=== PATIENT | male | born 1995 | race African-American/Black ===

== ENCOUNTER 2022-11-25 03:21 | Emergency (ER) | payer MEDICAID, OTHER ==
--- NOTE | 2022-11-25 03:40 | ED Neurological Problem ---
General Chief Complaint: General Problems/Pain Stated Complaint: THAI LEG NUMBNESS Source: patient, EMS Exam Limitations: no limitations History of Present Illness Date Seen by Provider: Nov 25, 2022 Time Seen by Provider: 03:23 Initial Comments 27-year-old male with past medical history of diabetes, hypertension, anxiety, and bipolar disorder coming in via EMS due to lower extremity numbness. He states for the past 3 and half weeks this is happening intermittently. Today he was sitting on the toilet, he felt both of his legs COVID, and it took a while before he was able to really stand up. Total numbness lasted around 20 minutes before it completely got better after getting off of the toilet seat for a few m inutes. Denies any back pain, bowel or bladder issues, trauma or falls, headache, vision changes, or any other concerns. EMS reports normal vitals and a glucose of 100. He states he does have some neuropathy in his feet and some vision changes from his diabetes already chronically. He states he is asymptomatic and back to his baseline at this time. Allergies and Home Medications Allergies Coded Allergies: No Known Drug Allergies (Unverified , 11/25/22) Patient Home Medication List Home Medication List Reviewed: Yes Review of Systems Review of Systems Constitutional: No fever Eyes: No Symptoms Reported Ears, Nose, Mouth, Throat: no symptoms reported Respiratory: no symptoms reported Cardiovascular: no symptoms reported Gastrointestinal: no symptoms reported Genitourinary: no symptoms reported Musculoskeletal: no symptoms reported Skin: no symptoms reported Psychiatric/Neurological: See HPI Endocrine: No Symptoms Reported Past Dhzzuzn-Irvgpg-Llautx Hx Patient Social History Tobacco Use?: Yes Smoking Status: Current Someday Smoker Substance use?: No Alcohol Frequency: Rarely Immunizations Up To Date COVID19 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 oz. kg; BMI Method: General Appearance: WD/WN, no apparent distress HEENT: PERRL/EOMI, normal ENT inspection, pharynx normal Neck: non-tender, full range of motion, supple, normal inspection Respiratory: chest non-tender, lungs clear, normal breath sounds, no respiratory distress, no accessory muscle use Cardiovascular: regular rate, rhythm, no edema, no murmur Gastrointestinal: normal bowel sounds, non tender, soft; No distended, No guarding, No rebound Back: normal inspection, no CVA tenderness, no vertebral tenderness Extremities: normal range of motion, non-tender, normal inspection, no pedal edema, no calf tenderness, normal capillary refill 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, no motor/sensory deficits, alert, normal mood/affect, oriented x 3, other (Decreased two-point discrimination over the distal aspect of his toes) Crainal Nerves: normal hearing, normal speech, PERRL Coordination/Gait: normal finger to nose, normal gait Motor/Sensory: no motor deficit, no sensory deficit, no pronator drift Skin: normal color, warm/dry Stroke Onset of Symptoms Date of Onset of Symptoms: Nov 25, 2022 Time of Symptom Onset: 01:00 Onset of Symptoms: Yes NIH Stroke Scale Assessment Select: Initial Level of Consciousness: 0=Alert (0), Level of Consciousness- Questions: 0=Answers both month/age (0), LOC Commands: 0=Performs both tasks (0), Gaze: Normal (0), Visual Maddox: 1=Partial hemianopia (1), Facial Movement (Facial Paresis): 0=Normal symmetrical mnt (0), Motor Function-Arms Right: 0=No drift (0), Motor Function-Arms Left: 0=No drift (0), Motor Function-Legs Right: 0=No drift (0), Motor Function-Legs Left: 0=No drift (0), Limb Ataxia: 0=Absent (0), Sensory: 0=Normal:no loss (0), Best Language: 0=No aphasia (0), Dysarthria: 0=Normal (0), Extinction & Inattention: 0=No abnormality (0), Total: 1 Stroke Thrombolytic Exclusion TPA Contraindication: Yes IV - TPa Received IV - TPa Procedure Performed?: No Progress/Results/Core Measures Results/Orders Lab Results Laboratory Tests Test 11/25/22 03:40 Range/Units White Blood Count 10.9 4.3-11.0 10^3/uL Red Blood Count 4.58 4.30-5.52 10^6/uL Hemoglobin 14.0 13.3-17.7 g/dL Hematocrit 42 40-54 % Mean Corpuscular Volume 91 80-99 fL Mean Corpuscular Hemoglobin 31 25-34 pg Mean Corpuscular Hemoglobin Concent 34 32-36 g/dL Red Cell Distribution Width 13.8 10.0-14.5 % Platelet Count 271 130-400 10^3/uL Mean Platelet Volume 9.7 9.0-12.2 fL Immature Granulocyte % (Auto) 0 % Neutrophils (%) (Auto) 47 42-75 % Lymphocytes (%) (Auto) 43 12-44 % Monocytes (%) (Auto) 7 0-12 % Eosinophils (%) (Auto) 3 0-10 % Basophils (%) (Auto) 1 0-10 % Neutrophils # (Auto) 5.1 1.8-7.8 10^3/uL Lymphocytes # (Auto) 4.6 H 1.0-4.0 10^3/uL Monocytes # (Auto) 0.8 0.0-1.0 10^3/uL Eosinophils # (Auto) 0.3 0.0-0.3 10^3/uL Basophils # (Auto) 0.1 0.0-0.1 10^3/uL Immature Granulocyte # (Auto) 0.0 0.0-0.1 10^3/uL Sodium Level 139 135-145 MMOL/L Potassium Level 3.6 3.6-5.0 MMOL/L Chloride Level 108 H 98-107 MMOL/L Carbon Dioxide Level 20 L 21-32 MMOL/L Anion Gap 11 5-14 MMOL/L Glucose Level 98 70-105 MG/DL Calcium Level 9.1 8.5-10.1 MG/DL My Orders Orders - LEVI NEGRON MD Basic Metabolic Panel (11/25/22 03:36) Cbc With Automated Diff (11/25/22 03:36) Magnesium (11/25/22 03:36) Vital Signs/I&O 11/25/22 11/25/22 03:21 03:21 Temp 37.1 Pulse 79 Resp 16 B/P (MAP) 128/77 (94) Pulse Ox 97 O2 Delivery Room Air Room Air Progress Progress Note : Progress Note 27-year-old male presenting for bilateral leg numbness after sitting on the toilet seat tonight. ABCs were intact and vitals were stable on presentation. Neuro exam completely normal including an NIH stroke scale of 0 and the patient is at his baseline. On more detailed exam, he does have decreased two-point discrimination in his toes and he does have known vision changes from diabetes. I suspect some portion of this is due to neuropathy. However given the anatomical compression of nerves while sitting on the toilet seat, that also is likely playing a part in it tonight. Given that it improved after getting off the toilet seat and he no longer feels that way, no trauma to his back, no headache or any other concerns, I do not think CT of his head or lumbar spine would be helpful at this time. I also do not believe an MRI would be necessary at this time given he is completely normal. I am unclear of the exact etiology, but I do think it would be prudent for him to follow-up with a neurologist as an outpatient. Did some basic labs here and his electrolytes are unremarkable. I believe he is otherwise stable for discharge with outpatient follow-up. He was sent home with strict return precautions Departure Impression Primary Impression: Bilateral leg numbness Disposition: 01 HOME, SELF-CARE Condition: Improved Departure-Patient Inst. Decision time for Depature: 04:20 Patient Instructions: Diabetic Neuropathy (DC), Paresthesia (DC) Add. Discharge Instructions: We do think that some extent of the numbness is you have some nerve damage from diabetes in your feet. There could also be some compression of nerves when you sit on the toilet which can cause symptoms like this. I do think it would be helpful to follow-up with a neurologist which is a mechanical specialist so they can examine you and see if they recommend any special imaging. Work/School Note: Work Release Form Date Seen in the Emergency Department: Nov 25, 2022 Return to Work: Nov 26, 2022 Restrictions: No Restrictions LEVI NEGRON MD Nov 25, 2022 03:40
[2022-11-25 03:49] LABS: BASOPHILS # (AUTO) 0.1 10^3/uL (0.0-0.1); BASOPHILS % (AUTO) 1 % (0-10); EOSINOPHILS # (AUTO) 0.3 10^3/uL (0.0-0.3); EOSINOPHILS % (AUTO) 3 % (0-10); HEMATOCRIT 42 % (40-54); LYMPHOCYTES # (AUTO) 4.6 10^3/uL (1.0-4.0); LYMPHOCYTES % (AUTO) 43 % (12-44); MEAN CORPUSCULAR HEMOGLOBIN 31 pg (25-34); MEAN CORPUSCULAR HGB CONC 34 g/dL (32-36); MEAN CORPUSCULAR VOLUME 91 fL (80-99); MEAN PLATELET VOLUME 9.7 fL (9.0-12.2); MONOCYTES # (AUTO) 0.8 10^3/uL (0.0-1.0); MONOCYTES % (AUTO) 7 % (0-12); NEUTROPHILS # (AUTO) 5.1 10^3/uL (1.8-7.8); NEUTROPHILS % (AUTO) 47 % (42-75); PLATELET COUNT 271 10^3/uL (130-400); WHITE BLOOD COUNT 10.9 10^3/uL (4.3-11.0)
[2022-11-25 04:00] LABS: POTASSIUM 3.6 MMOL/L (3.6-5.0)
[2022-11-25 04:02] LABS: CALCIUM 9.1 MG/DL (8.5-10.1)
[2022-11-25 04:06] LABS: CREATININE SERUM 0.87 MG/DL (0.60-1.30)
[2022-11-25 04:08] LABS: MAGNESIUM 1.7 MG/DL (1.6-2.4)
[2022-11-25 04:27] VITALS: BP 123/76
== END 2022-11-25 04:27 | disposition home or self-care (01) ==
LOC: ER 03:23
DX: R20.0 Anesthesia of skin (principal); E11.9 Type 2 diabetes mellitus without complications; F17.200 Nicotine dependence, unspecified, uncomplicated
CPT/HCPCS: 36415; 80048; 83735; 85025

== ENCOUNTER 2022-12-17 08:24 | Emergency (ER) | payer MEDICAID ==
--- NOTE | 2022-12-17 08:37 | ED Psychosocial ---
General Chief Complaint: Psych/Social Disorder Stated Complaint: OVERDOSE Source: patient Exam Limitations: no limitations History of Present Illness Date Seen by Provider: Dec 17, 2022 Time Seen by Provider: 08:20 Initial Comments Patient is a 27-year-old male who presents to the emergency department by ambulance chief complaint possible overdose of atorvastatin 10 mg. Patient chronically does not sleep at night, was going to bed at 6 AM. Says he was very sleepy had taken a couple of hits off of a THC pen which she uses to help him go to sleep "quicker". He was very sleepy and did not realize that he took 3 of his atorvastatin till after he took them. His brother became concerned due to his excessive sleepiness and recent events of a break-up with his girlfriend. Patient adamantly denies suicidal ideation. No auditory or visual h allucinations. He states "I am not depressed". He had previous attempts at self-harm when he was a young teenager due to being in foster care. Nothing since. He has a job interview at [employer] this afternoon. He is goal oriented. He states he has a lot of people to help take care of. He is absolutely having no thoughts of harming himself. Is concerned because he has diabetes and he has not eaten in over 12 hours. Takes metformin twice a day. Had a cold about a month ago, no current symptoms of illness. Timing/Duration: just prior to arrival Associated Symptoms: denies symptoms Allergies and Home Medications Allergies Coded Allergies: No Known Drug Allergies (Unverified , 11/25/22) Patient Home Medication List Home Medication List Reviewed: Yes Review of Systems Constitutional: see HPI EENTM: no symptoms reported Respiratory: no symptoms reported Cardiovascular: no symptoms reported Gastrointestinal: no symptoms reported Genitourinary: no symptoms reported Musculoskeletal: no symptoms reported Skin: no symptoms reported Psychiatric/Neurological: Denies Anxiety, Denies Depressed, Denies Emotional Problems All Other Systems Reviewed Negative Unless Noted: Yes Past Jaysmre-Iysyma-Bdoqfl Hx Past Medical History Surgeries: No Physical Exam Capillary Refill : Height, Weight, BMI Height: '" Weight: lbs. oz. kg; BMI Method: General Appearance: WD/WN, no apparent distress, obese HEENT: PERRL/EOMI Neck: full range of motion Respiratory: lungs clear, normal breath sounds, no respiratory distress, no accessory muscle use Cardiovascular: regular rate, rhythm Extremities: normal range of motion, normal inspection Neurologic/Psychiatric: alert, normal mood/affect, oriented x 3; No depressed affect; other (sleepy but conversant; pleasant; no distress.) Appearance/Memory: appropriate appearance, appropriate insight, neat, no memory impairment, denies illness Behavior/Eye Contact: cooperative, good eye contact, normal speech; No compulsive, No uncooperative Thoughts/Hallucinations: normal thought pattern, no apparent hallucination; No auditory hallucinations, No delusions, No grandiose, No paranoid, No hindu Skin: normal color, warm/dry Progress/Results/Core Measures Progress Progress Note : Time: 08:37 Progress Note Patient seen and evaluated by me. Evaluation today includes physical exam, bedside glucose. Pertinent physical exam, obese -[place] male no acute distress. Sleepy. Frustrated that he is in the emergency department. Normal HEENT exam, heart is regular, lungs are clear. Patient is adamantly not suicidal. States he is not depressed. Cooperative, good insight, normal judgment. No concerns for suicide attempt. Patient had blood sugar of 100 Will discharge patient to home. Clinically I do not feel like he has any concerns for suicidality. Vital signs are stable. No clinical risk and 3 10 mg atorvastatin. Patient is goal oriented, good judgment, normal insight. Departure Impression Primary Impression: Accidental overdose Qualified Codes: T50.901A - Poisoning by unspecified drugs, medicaments and biological substances, accidental (unintentional), initial encounter Disposition: 01 HOME, SELF-CARE Condition: Stable Departure-Patient Inst. Decision time for Depature: 08:39 Referrals: NO,LOCAL PHYSICIAN (PCP/Family) Primary Care Physician Patient Instructions: Accidental Overdose, Adult ED Add. Discharge Instructions: Continue your daily medications as prescribed. Follow-up with your primary care physician as scheduled. Return to the emergency department for any new, concerning or emergent complaints. CYNTHIA KELLEY MD Dec 17, 2022 08:37
[2022-12-17 09:02] VITALS: BP 126/82
== END 2022-12-17 09:03 | disposition home or self-care (01) ==
LOC: EDUNIT# 08:24 → ER 08:25
DX: R40.0 Somnolence (principal); T46.6X1A Poisoning by antihyperlipidemic and antiarteriosclerotic drugs, accidental (unintentional), initial encounter; E66.9 Obesity, unspecified; Z79.84 Long term (current) use of oral hypoglycemic drugs
CPT/HCPCS: 82947